=== PATIENT | female | born 1995 | race Caucasian/White ===

== ENCOUNTER 2023-11-04 02:21 | Inpatient (IN) | payer BC, SELFPAY ==
[2023-11-04] MEDS: Oxytocin 30 units/NS 500 ML 500 ML ONE (02:58)
[2023-11-04] MEDS: Morphine 4 MG/ML VIAL ONE (03:05)
[2023-11-04 03:08] VITALS: BMI 31.6
[2023-11-04] MEDS ORDERED: Ibuprofen 800 MG TAB PO PRN (03:44)
[2023-11-04] MEDS ORDERED: Lidocaine 1% (PF) 30 ML VIAL SC PRN (03:44)
[2023-11-04] MEDS ORDERED: fentaNYL 50 mcg/mL 1 mL Vial SLOW IVP PRN (03:44)
[2023-11-04] MEDS ORDERED: Carboprost 250 MCG/ML AMP IM PRN (03:44)
[2023-11-04] MEDS ORDERED: HYDROcodone/Acetaminophen 5/325 mg Tablet PO PRN ×2 (03:44)
[2023-11-04] MEDS ORDERED: hydrALAZINE 20 MG/ML VIAL SLOW IVP PRN ×2 (03:44→03:47)
[2023-11-04] MEDS ORDERED: Acetaminophen 500 MG TAB PO PRN (03:44)
[2023-11-04] MEDS ORDERED: Methylergonovine 0.2 MG/ML VIAL IM PRN (03:44)
[2023-11-04] MEDS ORDERED: Promethazine HCl 25 MG/ML VIAL IM PRN ×2 (03:44→03:47)
[2023-11-04] MEDS ORDERED: Diphenoxylate HCl/Atropine Tablet PO PRN (03:44)
[2023-11-04] MEDS ORDERED: Misoprostol 200 MCG TAB PR PRN (03:44)
[2023-11-04] MEDS ORDERED: Ondansetron PF 4 MG/2 ML Vial IVP PRN ×2 (03:44→03:47)
[2023-11-04] MEDS ORDERED: Oxytocin 30 units/NS 500 ML 500 ML IV SCH ×2 (03:45→04:00)
[2023-11-04] MEDS ORDERED: Lactated Ringer's 1,000 ML IV SCH (03:45)
[2023-11-04] MEDS ORDERED: Benzocaine-Menthol 82.5 ML CAN TOP PRN (03:47)
[2023-11-04] MEDS ORDERED: diphenhydrAMINE 25 MG CAP PO PRN (03:47)
[2023-11-04] MEDS ORDERED: Preparation H Ointment 28 GM TUBE PR PRN (03:47)
[2023-11-04] MEDS ORDERED: Lanolin Ointment 7 GM TUBE TOP PRN (03:47)
[2023-11-04] MEDS ORDERED: Milk Of Magnesia 30 ML UDCUP PO PRN (03:47)
[2023-11-04] MEDS ORDERED: Bisacodyl 10 MG SUPP PR PRN (03:47)
[2023-11-04 04:11] LABS: Hematocrit 36.7 % (34.9-44.5); Hemoglobin 12.7 g/dL (12.0-15.5); Mean Corpuscular HGB CONC 34.6 g/dL (32.0-36.0); Mean Corpuscular Volume 86.8 fl (81.6-98.3); Mean Platelet Volume 10.6 fl (7.4-10.4); Platelet Count 265 10x3/uL (150-450); RBC Distribution Width 13.2 % (11.5-14.5); Red Blood Cell (RBC) Count 4.23 10x6/uL (3.90-5.03); White Blood Cell (WBC) Count 14.2 10x3/uL (3.5-10.5)
[2023-11-04 04:47] LABS: Hep B Surf Ag - L&D Non-Reactive S/CO (NonReactive); Syphilis Antibody Nonreactive (Nonreactive); Syphilis Antibody Index 0.03 S/CO (<1.00 Non-Reactive)
[2023-11-04] MEDS: Ibuprofen 800 MG TAB PO SCH (06:19)
[2023-11-04] MEDS: Oxytocin 10 UNITS/ML VIAL ONE (08:14)
[2023-11-04] MEDS: Morphine 4 MG/ML VIAL SLOW IVP SCH (08:14)
[2023-11-04] MEDS: Lidocaine 1% (PF) 30 ML VIAL ONE (08:14)
[2023-11-04] MEDS: Ferrous Sulfate 325 MG TAB PO SCH (08:15)
[2023-11-04] MEDS: Docusate 100 MG CAP PO SCH (08:34)
[2023-11-04] MEDS: Prenatal Vitamin 1 TAB PO SCH (08:34)
[2023-11-04] MEDS: Boostrix 0.5 ML (Tdap) VIAL (>/=7 yrs of age) IM ONE (08:38)
[2023-11-06 08:27] VITALS: BP 125/75; TEMP 98.7
== END 2023-11-06 11:50 | disposition home or self-care (01) | DRG 807 ==
LOC: CSHLD/OP 02:21 → CSHLD 03:00 → CSHPP 06:08
PROVIDERS: ADMIT Obstetrics & Gynecology; ATTEND Obstetrics & Gynecology
PROC: 10E0XZZ Delivery of Products of Conception, External Approach (ICD-10-PCS; principal; 2023-11-04)
PROC: 0KQM0ZZ Repair Perineum Muscle, Open Approach (ICD-10-PCS; 2023-11-04)
DX: O24.420 Gestational diabetes mellitus in childbirth, diet controlled (principal); Z37.0 Single live birth; Z3A.40 40 weeks gestation of pregnancy; O48.0 Post-term pregnancy; O70.1 Second degree perineal laceration during delivery
CPT/HCPCS: 36415; 85027; 86780; 86850; 86900; 86901; 87340; J2001; J2270; J2590